=== PATIENT | male | born 1935 | race Caucasian/White ===

== ENCOUNTER 2016-12-05 08:42 | Day surgery (SDC) | payer MEDICARE ==
[2016-12-04 09:39] VITALS: BP 152/87
[2016-12-04 10:03] LABS: HEMATOCRIT 48.6 % (39.2-51.8); HEMOGLOBIN 16.3 g/dL (13.7-18.0); WHITE BLOOD COUNT 5.5 x10^3/uL (3.4-10)
[2016-12-04 10:12] LABS: BLOOD UREA NITROGEN 21 mg/dL (7-18)
[2016-12-04 10:16] LABS: ASPARTATE AMINO TRANSFERASE 74 U/L (15-37)
[~2016-12-05] VITALS: Ht 177.8 cm; Wt 129.6 kg
[~2016-12-05 08:42] MED LIST: ASCO500T8 PO; CHOL10003 PO; POTA10TA12 PO; TORS10TA4 PO; TRAM50TA2 PO; VERA180C2 PO
[2016-12-05] MEDS ORDERED: SODIUM CHLORIDE 0.9% 1,000 ML IV SCH (09:21)
[2016-12-05] MEDS ORDERED: HYDR-3138 PO (09:29)
[2016-12-05] MEDS ORDERED: CEFAZOLIN PMX 1GM/50ML 50 ML IVPB ONE (09:30)
[2016-12-05] MEDS ORDERED: CEFAZOLIN PMX 1GM/50ML 50 ML ONE (11:03)
[2016-12-05] MEDS ORDERED: MIDAZOLAM 1 MG/ML, 5ML ONE (11:03)
[2016-12-05] MEDS ORDERED: FENTANYL PF 100 MCG/2ML ONE (11:03)
[2016-12-05] MEDS ORDERED: LIDOCAINE 2%, 20ML ONE (11:04)
[2016-12-05] MEDS ORDERED: CEFAZOLIN 1,000 MG ONE (11:04)
[2016-12-05] MEDS ORDERED: CEPH-368 PO (12:17)
== END 2016-12-05 13:53 | disposition home or self-care (01) ==
LOC: CACL 08:42
PROVIDERS: ATTEND Internal Medicine Cardiovascular Disease
DX: Z45.010 Encounter for checking and testing of cardiac pacemaker pulse generator [battery] (principal); Z87.891 Personal history of nicotine dependence; I44.30 Unspecified atrioventricular block; I48.2 Chronic atrial fibrillation; M19.90 Unspecified osteoarthritis, unspecified site
CPT/HCPCS: 33228; 36415; 71020; 80053; 85025; 85610; 85730; 99156; C1785; J0690; J2250; J3010; J3490

== ENCOUNTER → 2020-05-03 | Outpatient (CLI) | payer MEDICARE ==
[~2020-05-03] MED LIST changes: +CEPH-368 PO; +HYDR-3237 PO
== END | disposition home or self-care (01) ==
LOC: WOUND 08:40
PROVIDERS: ATTEND Internal Medicine
DX: I87.333 Chronic venous hypertension (idiopathic) with ulcer and inflammation of bilateral lower extremity (principal); L97.812 Non-pressure chronic ulcer of other part of right lower leg with fat layer exposed; L97.822 Non-pressure chronic ulcer of other part of left lower leg with fat layer exposed; L97.212 Non-pressure chronic ulcer of right calf with fat layer exposed; I89.0 Lymphedema, not elsewhere classified; I48.21 Permanent atrial fibrillation; M17.0 Bilateral primary osteoarthritis of knee; I13.0 Hypertensive heart and chronic kidney disease with heart failure and stage 1 through stage 4 chronic kidney disease, or unspecified chronic kidney disease; N18.9 Chronic kidney disease, unspecified; I50.810 Right heart failure, unspecified; G89.29 Other chronic pain; Z87.891 Personal history of nicotine dependence; Z79.891 Long term (current) use of opiate analgesic
CPT/HCPCS: 97597; G0463

== ENCOUNTER → 2020-05-10 | Outpatient (CLI) | payer MEDICARE | END | disposition home or self-care (01) | LOC: WOUND 08:18 | PROVIDERS: ATTEND Internal Medicine | DX: I87.333 Chronic venous hypertension (idiopathic) with ulcer and inflammation of bilateral lower extremity (principal); L97.812 Non-pressure chronic ulcer of other part of right lower leg with fat layer exposed; L97.822 Non-pressure chronic ulcer of other part of left lower leg with fat layer exposed; L97.212 Non-pressure chronic ulcer of right calf with fat layer exposed; S91.101D Unspecified open wound of right great toe without damage to nail, subsequent encounter; S51.812A Laceration without foreign body of left forearm, initial encounter; I89.0 Lymphedema, not elsewhere classified; I48.21 Permanent atrial fibrillation; M17.0 Bilateral primary osteoarthritis of knee; I13.0 Hypertensive heart and chronic kidney disease with heart failure and stage 1 through stage 4 chronic kidney disease, or unspecified chronic kidney disease; N18.9 Chronic kidney disease, unspecified; I50.810 Right heart failure, unspecified; G89.29 Other chronic pain; I48.20 Chronic atrial fibrillation, unspecified; L84 Corns and callosities; Z87.891 Personal history of nicotine dependence; Z79.891 Long term (current) use of opiate analgesic; X58.XXXD Exposure to other specified factors, subsequent encounter; X58.XXXA Exposure to other specified factors, initial encounter; Y93.89 Activity, other specified; Y92.89 Other specified places as the place of occurrence of the external cause; Y99.8 Other external cause status | CPT/HCPCS: 97597 ==

== ENCOUNTER → 2020-05-17 | Outpatient (CLI) | payer MEDICARE | END | disposition home or self-care (01) | LOC: WOUND 08:30 | PROVIDERS: ATTEND Internal Medicine | DX: I87.333 Chronic venous hypertension (idiopathic) with ulcer and inflammation of bilateral lower extremity (principal); L97.812 Non-pressure chronic ulcer of other part of right lower leg with fat layer exposed; L97.822 Non-pressure chronic ulcer of other part of left lower leg with fat layer exposed; L97.212 Non-pressure chronic ulcer of right calf with fat layer exposed; S91.101D Unspecified open wound of right great toe without damage to nail, subsequent encounter; S51.812D Laceration without foreign body of left forearm, subsequent encounter; I89.0 Lymphedema, not elsewhere classified; I48.21 Permanent atrial fibrillation; M17.0 Bilateral primary osteoarthritis of knee; I13.0 Hypertensive heart and chronic kidney disease with heart failure and stage 1 through stage 4 chronic kidney disease, or unspecified chronic kidney disease; N18.9 Chronic kidney disease, unspecified; I50.810 Right heart failure, unspecified; G89.29 Other chronic pain; I48.20 Chronic atrial fibrillation, unspecified; L84 Corns and callosities; Z87.891 Personal history of nicotine dependence; Z79.891 Long term (current) use of opiate analgesic; E66.01 Morbid (severe) obesity due to excess calories; Z68.41 Body mass index [BMI] 40.0-44.9, adult; X58.XXXD Exposure to other specified factors, subsequent encounter | CPT/HCPCS: 97597 ==

== ENCOUNTER → 2020-05-31 | Outpatient (CLI) | payer MEDICARE | END | disposition home or self-care (01) | LOC: WOUND 09:42 | PROVIDERS: ATTEND Internal Medicine | DX: I87.333 Chronic venous hypertension (idiopathic) with ulcer and inflammation of bilateral lower extremity (principal); L97.812 Non-pressure chronic ulcer of other part of right lower leg with fat layer exposed; L97.822 Non-pressure chronic ulcer of other part of left lower leg with fat layer exposed; L97.212 Non-pressure chronic ulcer of right calf with fat layer exposed; S91.101D Unspecified open wound of right great toe without damage to nail, subsequent encounter; S51.812D Laceration without foreign body of left forearm, subsequent encounter; I89.0 Lymphedema, not elsewhere classified; I48.21 Permanent atrial fibrillation; M17.0 Bilateral primary osteoarthritis of knee; I13.0 Hypertensive heart and chronic kidney disease with heart failure and stage 1 through stage 4 chronic kidney disease, or unspecified chronic kidney disease; N18.9 Chronic kidney disease, unspecified; I50.810 Right heart failure, unspecified; G89.29 Other chronic pain; I48.20 Chronic atrial fibrillation, unspecified; L84 Corns and callosities; E66.01 Morbid (severe) obesity due to excess calories; Z68.41 Body mass index [BMI] 40.0-44.9, adult; Z87.891 Personal history of nicotine dependence; Z79.891 Long term (current) use of opiate analgesic; X58.XXXD Exposure to other specified factors, subsequent encounter | CPT/HCPCS: 97597; 97598 ==

== ENCOUNTER 2020-06-07 10:38 | Outpatient (CLI) | payer MEDICARE | END 2020-06-07 23:59 | disposition home or self-care (01) | LOC: WOUND 10:38 | PROVIDERS: ATTEND Internal Medicine | DX: I87.333 Chronic venous hypertension (idiopathic) with ulcer and inflammation of bilateral lower extremity (principal); L97.812 Non-pressure chronic ulcer of other part of right lower leg with fat layer exposed; L97.822 Non-pressure chronic ulcer of other part of left lower leg with fat layer exposed; L97.212 Non-pressure chronic ulcer of right calf with fat layer exposed; I89.0 Lymphedema, not elsewhere classified; I48.21 Permanent atrial fibrillation; M17.0 Bilateral primary osteoarthritis of knee; I13.0 Hypertensive heart and chronic kidney disease with heart failure and stage 1 through stage 4 chronic kidney disease, or unspecified chronic kidney disease; N18.9 Chronic kidney disease, unspecified; I50.810 Right heart failure, unspecified; G89.29 Other chronic pain; I48.20 Chronic atrial fibrillation, unspecified; L84 Corns and callosities; E66.01 Morbid (severe) obesity due to excess calories; Z68.41 Body mass index [BMI] 40.0-44.9, adult; Z87.891 Personal history of nicotine dependence; Z79.891 Long term (current) use of opiate analgesic | CPT/HCPCS: 29580; 97597 ==